=== PATIENT | male | born 1955 | race Caucasian/White ===

== ENCOUNTER 2016-07-24 17:55 | Emergency (ER) | payer BC ==
[~2016-07-24] VITALS: Ht 172.7 cm; Wt 117.9 kg
[2016-07-24 18:00] VITALS: BP 200/87; PULSE 75; RESP 19; TEMP 98.6; O2SAT 95
--- NOTE | 2016-07-24 18:00 | NUR ---
Patient to ER bed 4 to gown for evaluation. Side rails up. Report given to Bryon BRADY.
--- NOTE | 2016-07-24 18:05 | NUR ---
ER at bedside examining patient.
--- NOTE | 2016-07-24 18:07 | NUR ---
PT PRESENTS TO ED C/O FEELING ANXIOUS. PT H/O KIDNEY TRANSPLANT X 4 YRS AGO. PT HYPERTENSIVE.
[2016-07-24] MEDS ORDERED: LORazepam 2 MG/ML VIAL (FOR ER USE) IVP ONE (18:15)
[2016-07-24] MEDS ORDERED: OMEG500C3 PO (18:36)
[2016-07-24] MEDS ORDERED: FOLI-43 PO (18:36)
[2016-07-24] MEDS ORDERED: MYCO180T3 PO (18:36)
[2016-07-24] MEDS ORDERED: LEVO125T8 PO (18:36)
[2016-07-24] MEDS ORDERED: TAMS0.4C96 PO (18:36)
[2016-07-24] MEDS ORDERED: INSU100V11 SQ (18:36)
[2016-07-24] MEDS ORDERED: ENAL10TA PO (18:36)
[2016-07-24] MEDS ORDERED: NIFE10CA2 PO (18:36)
[2016-07-24] MEDS ORDERED: FAMO20TA98 PO (18:36)
[2016-07-24] MEDS ORDERED: BELA250V IV (18:36)
[2016-07-24] MEDS ORDERED: MULT-634 PO (18:36)
[2016-07-24] MEDS ORDERED: PRED5TAB PO (18:36)
[2016-07-24] MEDS ORDERED: SULF1TAB48 PO (18:36)
[2016-07-24] MEDS ORDERED: MELA3TAB37 PO (18:36)
[2016-07-24] MEDS ORDERED: NPH,100V11 SUBCUT (18:36)
[2016-07-24] MEDS ORDERED: FURO-150 PO (18:36)
[2016-07-24] MEDS ORDERED: VENL37.510 PO (18:36)
[2016-07-24] MEDS ORDERED: CAT.1 PO (18:36)
[2016-07-24] MEDS ORDERED: GABA-529 PO (18:36)
--- NOTE | 2016-07-24 18:36 | NUR ---
Medication reconciliation completed with information provided by - list from patient. Any prior medication reconciliation on file was reviewed and corrected.
[2016-07-24 18:56] LABS: BASOPHILS % (AUTO) 0.5 % (0.0-2.0); EOSINOPHILS # (AUTO) 0.1 K/uL (0.0-0.4); EOSINOPHILS % (AUTO) 0.9 % (0.0-4.0); HEMATOCRIT 38.3 % (36-54); LYMPHOCYTES # (AUTO) 2.5 K/uL (1.0-5.5); LYMPHOCYTES % (AUTO) 27.2 % (20.5-51.5); MEAN CORPUSCULAR HEMOGLOBIN 30 pg (27-31); MEAN CORPUSCULAR HGB CONC 34 % (32-36); MEAN CORPUSCULAR VOLUME 87 fL (79.0-98.0); MONOCYTES # (AUTO) 0.9 K/uL (0.0-1.0); MONOCYTES % (AUTO) 9.9 % (1.7-9.3); NEUTROPHILS # (AUTO) 5.8 K/uL (1.8-7.7); NEUTROPHILS % (AUTO) 61.5 % (40.0-70.0); PLATELET COUNT (AUTO) 223 K/uL (130-430); RED CELL DISTRIBUTION WIDTH 13.1 % (9.0-15.0); WHITE BLOOD COUNT (AUTO) 9.3 K/uL (4.8-10.8)
--- NOTE | 2016-07-24 19:00 | NUR ---
PT IN BED 4 , VERBAL REPORT RECEIVED .
[2016-07-24 19:09] LABS: CALCIUM 9.1 mg/dL (8.4-11.0); CREATININE 1.31 mg/dL (0.55-1.30)
[2016-07-24 19:13] LABS: ALBUMIN 3.8 g/dL (3.4-4.8); TOTAL BILIRUBIN 0.2 mg/dL (0.0-1.0); TOTAL PROTEIN, SERUM 7.2 g/dL (6.4-8.3)
[2016-07-24 19:39] LABS: BILIRUBIN,URINE NEGATIVE (NEGATIVE); BLOOD, URINE NEGATIVE (NEGATIVE); CLARITY/URINE CLEAR (CLEAR); COLOR,URINE YELLOW (YELLOW); GLUCOSE,URINE NEGATIVE (NEGATIVE); KETONES,URINE NEGATIVE (NEGATIVE); LEUKOCYTE ESTERASE ,URINE NEGATIVE (NEGATIVE); NITRITE, URINE NEGATIVE (NEGATIVE); PH,URINE 6.5 (5.0-8.0); PROTEIN URINE TRACE (NEGATIVE)
[2016-07-24 19:59] VITALS: BP 145/64; PULSE 61; RESP 17; TEMP 98.2; O2SAT 95
--- NOTE | 2016-07-24 19:59 | NUR ---
Patient given written and verbal discharge instructions and verbalizes understanding. ER MD Fair discussed with patient the results and treatment provided. Patient in stable condition. ID arm band removed. IV catheter removed intact and dressing applied, no active bleeding. Rx of ativan given. Patient educated on pain management and to follow up with PMD. Pain Scale 0/10. Opportunity for questions provided and answered.
== END 2016-07-24 19:59 | disposition home or self-care (01) ==
LOC: SED 17:55
DX: F41.8 Other specified anxiety disorders (principal); E11.9 Type 2 diabetes mellitus without complications; I10 Essential (primary) hypertension; Z79.4 Long term (current) use of insulin; Z94.0 Kidney transplant status
CPT/HCPCS: 36415; 80053; 81003; 83605; 84484; 85025; 87040; 93005; 96374; 99285; J2060; J7030